=== PATIENT | male | born 1990 | race Hispanic/Latino ===

== ENCOUNTER 2017-04-01 22:39 | Emergency (ER) | payer SELFPAY ==
[2017-04-02 00:16] VITALS: BP 116/86
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
== END 2017-04-02 02:55 | disposition left against medical advice (07) ==
LOC: ED 22:39
DX: Z53.21 Procedure and treatment not carried out due to patient leaving prior to being seen by health care provider (principal)

== ENCOUNTER 2017-09-14 22:52 | Emergency (ER) | payer SELFPAY | END 2017-09-15 00:45 | disposition left against medical advice (07) | LOC: ED 22:52 | DX: S61.219A Laceration without foreign body of unspecified finger without damage to nail, initial encounter (principal); Z53.21 Procedure and treatment not carried out due to patient leaving prior to being seen by health care provider; W45.8XXA Other foreign body or object entering through skin, initial encounter; Y93.89 Activity, other specified; Y99.8 Other external cause status; Y92.89 Other specified places as the place of occurrence of the external cause ==

== ENCOUNTER 2021-04-13 13:15 | Emergency (ER) | payer SELFPAY ==
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
[2021-04-13 16:07] VITALS: BP 167/89
== END 2021-04-13 16:05 | disposition home or self-care (01) ==
LOC: ED 13:15
DX: S43.102A Unspecified dislocation of left acromioclavicular joint, initial encounter (principal); F17.200 Nicotine dependence, unspecified, uncomplicated; F12.90 Cannabis use, unspecified, uncomplicated; Z90.49 Acquired absence of other specified parts of digestive tract; Z79.899 Other long term (current) drug therapy; V89.2XXA Person injured in unspecified motor-vehicle accident, traffic, initial encounter; Y93.89 Activity, other specified; Y92.488 Other paved roadways as the place of occurrence of the external cause; Y99.8 Other external cause status
CPT/HCPCS: 99283